=== PATIENT | female | born 1980 ===

== ENCOUNTER 2017-11-05 03:10 | Emergency (ER) | payer SELFPAY ==
--- NOTE | 2017-11-05 03:46 | C.PDOC ---
History Of Present Illness 37 year old female presents to the ED for evaluation of redness, itchiness, and discharge to eyes and crusting to lashes which began two days ago. Patient notes symptoms initially began in her right eye, but then progressed to her bilateral eyes. Patient denies fever, chills or vision change. Time Seen by Provider: 11/05/17 03:29 Chief Complaint (Nursing): Eye Problem History Per: Patient History/Exam Limitations: no limitations Onset/Duration Of Symptoms: Days (2) Current Symptoms Are (Timing): Still Present Injury To Eye?: No Associated Symptoms: Itching, Discharge From Eye. denies: Decreased Vision Additional History Per: Patient Past Medical History Reviewed: Historical Data, Nursing Documentation, Vital Signs Vital Signs: Last Vital Signs Temp 97.9 F 11/05/17 05:03 Pulse 74 11/05/17 05:03 Resp 18 11/05/17 05:03 BP 131/72 11/05/17 05:03 Pulse Ox 98 11/05/17 05:27 - Medical History PMH: No Chronic Diseases Surgical History: No Surg Hx Family History: States: Unknown Family Hx - Social History Hx Alcohol Use: No Hx Substance Use: No Review Of Systems Eyes: Positive for: Redness (bilaterally), Other (itching and discharge to bilateral eyes ). Negative for: Vision Change Physical Exam - Physical Exam Appears: Non-toxic, No Acute Distress Skin: Normal Color, Warm, Dry Head: Atraumatic, Normacephalic Eye(s): bilateral: Other (erythema and discharge. crusting to lashes ) Extremity: Normal ROM Neurological/Psych: Oriented x3, Normal Speech, Normal Cognition ED Course And Treatment O2 Sat by Pulse Oximetry: 98 (on RA) Pulse Ox Interpretation: Normal Medical Decision Making Medical Decision Making: Impression: 37 year old female with erythema, itchiness and discharge from bilateral eyes. crusting to lashes Progress: On reassessment, patient is resting comfortably, remains afebrile and is showing no signs of distress. Patient is stable for discharge and is advised to follow up with her PMD within 1-2 days for further evaluation. 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 - Scribe Statement The provider has reviewed the documentation as recorded by the Scribe (Ariane Metz) All medical record entries made by the Scribe were at my direction and personally dictated by me. I have reviewed the chart and agree that the record accurately reflects my personal performance of the history, physical exam, medical decision making, and the department course for this patient. I have also personally directed, reviewed, and agree with the discharge instructions and disposition.
[2017-11-05 05:14] VITALS: BP 131/72; PULSE 74; RESP 18; TEMP 97.9; O2SAT 98
== END 2017-11-05 05:20 | disposition home or self-care (01) ==
LOC: C.ER 03:10
DX: H10.9 Unspecified conjunctivitis (principal)